=== PATIENT | female | born 2005 | race Caucasian/White ===

== ENCOUNTER 2023-04-12 12:47 | Outpatient (REF) | payer MEDICAID, SELFPAY ==
--- NOTE | 2023-04-12 | EMG_ITS ---
Please see EMG / Nerve Conduction Report. MTDD
--- NOTE | 2023-04-12 14:06 | HO.EMG-NCS ---
Physiatry - EMG/NCS EMG/NCS Chief complaint: Bilateral hand pain Reason for referral: Evaluate for Carpal Tunnel Syndrome Referred by: Dr. Pearce Procedure done: Bilateral upper extremities NCS/EMG Precautions and/or limitations: Machine interference Patient's tolerance of needle EMG. The limb temperature was monitored continuously and remained between 32-36 degrees C during the performance of the NCS. Nerve Conduction Studies Anti Sensory Summary Table ?Stim Site NR Onset (ms) Norm Onset (ms) Peak (ms) Norm Peak (ms) O-P Amp (?V) Norm O-P Amp Site1 Site2 Delta-0 (ms) Dist (cm) Timbo (m/s) Norm Timbo (m/s) Right Median Anti Sensory (2nd Digit) Wrist ? 2.5 3.4 <3.6 73.3 >10 Wrist 2nd Digit 2.5 14.0 56 Right Ulnar Anti Sensory (5th Digit) Wrist ? 2.5 3.3 <3.7 76.6 >15.0 Wrist 5th Digit 2.5 14.0 56 Motor Summary Table ?Stim Site NR Onset (ms) Norm Onset (ms) O-P Amp (mV) Norm O-P Amp iAmp (mV) Amp (1st) (%) Site1 Site2 Delta-0 (ms) Dist (cm) Timbo (m/s) Norm Timbo (m/s) Left Median Motor (Abd Poll Brev) Wrist ? 3.8 <3.9 13.1 >4.5 15.8 100.0 Elbow Wrist 3.7 19.5 53 >45 Elbow ? 7.5 11.0 13.2 84.0 Right Median Motor (Abd Poll Brev) Wrist ? 3.7 <3.9 7.4 >4.5 9.8 100.0 Elbow Wrist 3.6 22.0 61 >45 Elbow ? 7.3 7.8 10.2 105.4 Left Ulnar Motor (Abd Dig Minimi) Wrist ? 2.7 <3.0 9.9 >5 12.4 100.0 B Elbow Wrist 3.0 18.0 60 >45 B Elbow ? 5.7 9.5 12.2 96.0 A Elbow B Elbow 1.4 10.0 71 >45 A Elbow ? 7.1 8.5 10.9 85.9 Right Ulnar Motor (Abd Dig Minimi) Wrist ? 3.0 <3.0 10.9 >5 13.0 100.0 B Elbow Wrist 3.0 25.0 83 >45 B Elbow ? 6.0 6.9 7.6 63.3 A Elbow B Elbow 1.9 10.0 53 >45 A Elbow ? 7.9 5.7 6.8 52.3 Comparison Summary Table ?Stim Site NR Peak (ms) Norm Peak (ms) P-T Amp (?V) Site1 Site2 Delta-P (ms) Norm Delta (ms) Left Median/Radial Dig I Comparison (Digit 1 - 10cm) Median ? 2.5 <2.9 191.4 Median Radial 0.2 Radial ? 2.7 <2.8 206.5 Right Median/Radial Dig I Comparison (Digit 1 - 10cm) Median ? 2.8 <2.9 160.5 Median Radial 0.1 Radial ? 2.9 <2.8 154.8 EMG+ ?Side Muscle Nerve Root Ins Act Fibs Psw Amp Dur Poly Recrt Int Pat Comment Left FDI Ulnar C8-T1 Nml Nml Nml Nml Nml 0 Nml Complete Left FCR Median C6-C7 Nml Nml Nml Nml Nml 0 Nml Complete Left Biceps Musculocut C5-C6 Nml Nml Nml Nml Nml 0 Nml Complete Left Triceps Radial C6-C8 Nml Nml Nml Nml Nml 0 Nml Complete Left Deltoid Axillary C5-C6 Nml Nml Nml Nml Nml 0 Nml Complete FINDINGS: Possible left Desmond Cindy anastomosis noted which is a normal anatomic variant. Otherwise, all nerves tested were within normal. Concentric needle EMG was performed in selected muscles of the left upper extremity. Study did not reveal signs of electric abnormalities as shown in the table below. We attempted to do needle EMG on right but patient had difficulty tolerating. IMPRESSION: 1. This is a normal Study. 2. There is no electrodiagnostic evidence for median neuropathy, ulnar neuropathy, brachial plexopathy, cervical radiculopathy. Thank you for your kind referral. Jena Huizar MD, JEMMA Board Certified, [employer] [employer] (ABPMR) Board Certified, [place] [employer] Electro[employer] (ABEM)
== END 2023-04-12 12:48 | disposition home or self-care (01) ==
LOC: HO.NEURO 12:47
PROVIDERS: PCP Family Medicine; Visit Provider Family Medicine
DX: M79.641 Pain in right hand (principal); M79.642 Pain in left hand
CPT/HCPCS: 95860; 95886; 95907; 95911

== ENCOUNTER → 2023-04-12 12:47 | Outpatient (BNV) | payer MEDICAID, SELFPAY | PROVIDERS: PCP Family Medicine; Visit Provider Physical Medicine & Rehabilitation | DX: M25.531 Pain in right wrist (principal); M25.532 Pain in left wrist; M79.641 Pain in right hand; M79.642 Pain in left hand | CPT/HCPCS: 95886; 95911 ==

== ENCOUNTER 2023-05-16 19:10 | Outpatient (REF) | payer MEDICAID, SELFPAY ==
[2023-05-16 21:02] LABS: Influenza A PCR NEGATIVE (Negative); Influenza B PCR NEGATIVE (Negative); Resp Syncy Virus RNA Qual PCR NEGATIVE (Negative); SARS COV2 PCR INHOUSE NEGATIVE (Negative)
== END 2023-05-16 19:11 | disposition home or self-care (01) ==
LOC: HO.HHCLNP 19:10
PROVIDERS: Visit Provider Pediatrics
DX: Z20.822 Contact with and (suspected) exposure to COVID-19 (principal)
CPT/HCPCS: 0241U

== ENCOUNTER 2023-06-23 15:14 | Outpatient (REF) | payer MEDICAID, SELFPAY ==
[2023-06-27 03:15] LABS: Rubella IgG Antibody 0.96 Index
== END 2023-06-23 15:15 | disposition home or self-care (01) ==
LOC: HO.CHCLDS 15:14
PROVIDERS: Visit Provider Family Medicine
DX: Z01.84 Encounter for antibody response examination (principal)
CPT/HCPCS: 36415; 86735; 86762; 86765; 86787

== ENCOUNTER 2023-07-18 14:18 | Outpatient (REF) | payer MEDICAID, SELFPAY ==
[2023-07-18 17:27] LABS: MANUAL DIFF FLAG NO
[2023-07-18 17:28] LABS: Basophils Percent Auto 0.7 % (0-2); Eosinophils Absolute Auto 0.2 X10*3/uL (0.0-0.4); Eosinophils Percent Auto 4.6 % (0-4); Hematocrit 36.2 % (37.0-47.0); Hemoglobin 11.7 g/dl (12.0-16.0); Lymphocytes Absolute Auto 1.5 X10*3/uL (1.2-4.9); Lymphocytes Percent Auto 35.1 % (20-40); Mean Corpuscular HGB Conc 32.3 g/dl (31.0-35.0); Mean Corpuscular Hemoglobin 28.1 pg (27.0-33.0); Mean Corpuscular Volume 86.8 fL (80.0-98.0); Mean Platelet Volume 9.9 fL (9.4-12.3); Monocytes Absolute Auto 0.3 X10*3/uL (0.1-1.2); Monocytes Percent Auto 7.9 % (2-11); Neutrophils Absolute Auto 2.2 x10*3/uL (2.0-8.3); Neutrophils Percent Auto 51.7 % (45-73); Platelet Count 279 X10*3/uL (160-400); Red Blood Count 4.17 X10*6/uL (4.20-5.50); Red Cell Distribution Width 12.7 % (11.0-16.0); White Blood Count 4.2 X10*3/uL (4.8-10.8)
[2023-07-18 17:37] LABS: INTERNATIONAL NORM RATIO 0.9 (0.9-1.1); Prothrombin Time 11.1 SEC (11.1-13.3)
[2023-07-18 17:51] LABS: Alanine Aminotransferase 10 U/L (0-31); Albumin Level 4.3 g/dL (3.5-5.0); Alkaline Phosphatase 49 U/L (39-117); Anion Gap 8 (12-20); Aspartate Amino Transferase 17 U/L (5-31); Bilirubin Total 0.3 mg/dL (0.0-1.0); Blood Urea Nitrogen 11 mg/dL (9-16); Calcium 9.3 mg/dL (8.4-10.2); Carbon Dioxide 28 mmol/L (22-29); Chloride 106 mmol/L (96-108); Estimated Glomerular Filt Rate > 60; Glucose Random 87 mg/dL (60-115); Potassium 3.7 mmol/L (3.3-5.1); Sodium 138 mmol/L (135-145); Total Protein 7.1 g/dL (6.5-8.0)
[2023-07-18 18:06] LABS: Ferritin 34 ng/mL (10-122); TSH reflex Free T4 1.36 uIU/mL (0.32-4.0)
[2023-07-19 03:17] LABS: CT PCR DETECTED (Not Detect.); NG PCR NOT DETECTED (Not Detect.)
== END 2023-07-18 14:19 | disposition home or self-care (01) ==
LOC: HO.CHCLDS 14:18
PROVIDERS: Advanced Practice Midwife; Visit Provider Family Medicine
DX: N93.9 Abnormal uterine and vaginal bleeding, unspecified (principal)
CPT/HCPCS: 0353U; 36415; 80053; 82728; 84443; 85025; 85610

== ENCOUNTER 2023-11-29 16:14 | Outpatient (REF) | payer MEDICAID, SELFPAY ==
[2023-11-29 17:46] LABS: Appearance Urine Clear; Color Urine Yellow; Glucose Urine UA Negative (Negative); Leukocyte Esterase Urine Trace (Negative); Nitrite Urine Negative (Negative); PH 6.5 (5.0-9.0); Specific Gravity - Urine 1.025 (1.005-1.025); UMIC TRIGGER UA YES; Urine Blood Negative (Negative); Urine Ketones Negative (Negative); Urine Protein Negative (Neg-Trace)
[2023-11-29 17:53] LABS: Bacteria Urine None Seen (None Seen); Hyaline Casts Urine 0-2 /LPF (0-2); RBC Urine 0-2 /HPF (0-2); WBC Urine 0-5 /HPF (0-5)
[2023-11-30 07:02] LABS: HIV AB/AG Nonreactive (Nonreactive); HIV Num 1 0.06 S/CO (0.00-0.99); ~HepC Num1 0.13 S/CO (0.00-0.79); ~Hepatitis C Antibody Nonreactive (Nonreactive)
[2023-12-01 09:33] LABS: RPR Rapid Plasma Reagin NON-REACTIVE (NON-REACTIVE)
== END 2023-11-29 16:15 | disposition home or self-care (01) ==
LOC: HO.CHCLDS 16:14
PROVIDERS: Visit Provider Internal Medicine
DX: R10.9 Unspecified abdominal pain (principal); Z11.3 Encounter for screening for infections with a predominantly sexual mode of transmission
CPT/HCPCS: 36415; 81001; 86592; 86803; 87389